=== PATIENT | male | born 2000 | race African-American/Black ===

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

== ENCOUNTER 2024-03-21 10:43 | Emergency (ER) | payer MEDICAID, OTHER ==
[~2024-03-21] VITALS: Ht 193 cm; Wt 79.0 kg
[2024-03-21 10:57] VITALS: BP 129/75; PULSE 74; RESP 16; TEMP 98.2; O2SAT 100
[2024-03-21] MEDS: LIDOCAINE HCL/PF 1% 10 MG/ML 5ML VIAL INFIL ONE (12:59)
[2024-03-21] MEDS ORDERED: SULF1TAB48 MT (13:36)
== END 2024-03-21 13:56 | disposition home or self-care (01) ==
LOC: ER 11:05
DX: L02.411 Cutaneous abscess of right axilla (principal)
CPT/HCPCS: 99283; 10060; J3490

== ENCOUNTER 2024-03-31 14:03 | Emergency (ER) | payer OTHER ==
[~2024-03-31] VITALS: Ht 195.6 cm; Wt 78.0 kg
[~2024-03-31 14:03] MED LIST changes: +SULF1TAB48 MT
[2024-03-31 14:23] VITALS: O2SAT 100
[2024-03-31] MEDS: LIDOCAINE HCL 1% 20ML VIAL INFIL ONE (15:49)
[2024-03-31 16:42] VITALS: BP 124/67; PULSE 78; RESP 16; TEMP 37.11408; O2SAT 100
== END 2024-03-31 17:07 | disposition home or self-care (01) ==
LOC: ER 14:03
DX: L02.412 Cutaneous abscess of left axilla (principal); Z00.00 Encounter for general adult medical examination without abnormal findings
CPT/HCPCS: 10060; 99283; J3490; Z7610 ×3